=== PATIENT | female | born 1985 | race Caucasian/White ===

== ENCOUNTER → 2021-06-29 00:30 | Outpatient (CLI) | payer BC, SELFPAY ==
--- NOTE | 2021-06-29 07:45 | DI.MRI_ITS ---
Exam(s) MR CERVICAL SPINE WO EXAM: MR CERVICAL SPINE WO CLINICAL HISTORY: PARESTHESIA, R20.9; LT ARM PAIN, M79.602; CHRONIC NECK PAIN, M54.2 TECHNIQUE: Multiplanar multisequence MRI of the cervical spine was performed without intravenous con trast. COMPARISON: No exams were available for comparison FINDINGS: BONES: Vertebral body heights are maintained. Intervertebral disc spaces are normal. Alignment is nor mal. Bone marrow signal intensity is within normal limits. CERVICAL CORD: Craniovertebral junction is unremarkable. The cervical cord is normal size and signal intensity. SOFT TISSUES: Unremarkable. C2-3: No disc herniation or bulge is identified. C3-4: Minimal posterior bulging. C4-5: Minimal posterior bulging. C5-6: Mild loss disc height. Small endplate osteophytes. Disc osteophytes eccentric toward the righ t causing right neural foraminal narrowing. No significant central canal stenosis. C6-7: Mild disc bulging with concentric disc osteophytes. Mild bilateral neural foraminal narrowing. C7-T1: No disc herniation or bulge is identified. IMPRESSION: Disc bulging at C5-6 and C6-7 causing neural foraminal narrowing which appears greatest at C5-6 on th e right. No focal disc herniation. DATA REPOSITORY:
== END ==
PROVIDERS: PCP Family Medicine; Visit Provider Family Medicine
DX: M54.2 Cervicalgia (principal); M79.602 Pain in left arm; R20.2 Paresthesia of skin; M50.322 Other cervical disc degeneration at C5-C6 level; M50.323 Other cervical disc degeneration at C6-C7 level
CPT/HCPCS: 72141

== ENCOUNTER 2021-09-21 15:15 | Outpatient (REF) | payer BC, SELFPAY ==
[2021-09-21 15:03] LABS: TSH (W/Ref FT4) 1.48 uIU/mL (0.36-3.74)
[2021-09-22 11:00] LABS: Hepatitis C Ab w Rflx HCV PCR Negative (Negative)
[2021-09-22 11:05] LABS: HIV-1/2 Ag & Ab Screen Negative (Negative)
== END 2021-09-21 15:16 | disposition home or self-care (01) ==
LOC: NCHCN 15:15
PROVIDERS: PCP Family Medicine; Visit Provider Family Medicine
DX: R63.5 Abnormal weight gain (principal); Z11.4 Encounter for screening for human immunodeficiency virus [HIV]; Z11.59 Encounter for screening for other viral diseases
CPT/HCPCS: 86803; 87389; 84443